=== PATIENT | female | born 1980 | race Two or more races ===

== ENCOUNTER 2016-12-20 08:00 | Inpatient (IN) | payer MEDICAID ==
[~2016-12-20] VITALS: Ht 162.6 cm; Wt 74.4 kg
--- NOTE | 2016-12-20 08:42 | NSTRPT ---
NST Information Datetime Report Generated by CPN: 12/20/2016 08:42 Datetime: 12/15/2016 10:16 NST Information EGA: 39.3 Test Number: 7 Time on Monitor: 12/15/2016 10:40 Time off Monitor: 12/15/2016 11:08 NST Duration (Min): 28 Reason for NST: Other Reason for NST Other: AMA Test and Monitor Explained: Monitor Explained; Test Explained; Verbalized Understanding Pulse: 88 Resp: 18 SBP: 100 DBP: 57 Test Evaluation NST Interventions: None Contraction Frequency: NONE FHR Baseline : 135 Variability: Moderate 6-25bpm Accelerations: 15X15 Decelerations: None FHR Category: Category I NST Results: Reactive Comments: To u/s. DORA 14.2cm. CEPHALIC. 1110-Pt home undelivered with labor precautions, kick count instructions reviewed and follo w up NST appt. given. States understanding and denies futher questions at this time. (Annotations: D lamberto stored by CPN on behalf of user) Electronically Signed By E-Signature: with User ID: [id number] Datetime: 12/12/2016 10:30 NST Information EGA: 39.0 NST Duration (Min): 23 Datetime: 12/08/2016 10:19 NST Information EGA: 38.3 NST Duration (Min): 40 Datetime: 12/05/2016 09:20 NST Information EGA: 38.0 NST Duration (Min): 30 Datetime: 11/30/2016 09:43 NST Information EGA: 37.2 NST Duration (Min): 28 Datetime: 11/27/2016 09:18 NST Information EGA: 36.6 NST Duration (Min): 32 Datetime: 11/23/2016 09:39 NST Information EGA: 36.2 Datetime: 11/23/2016 09:38 NST Duration (Min): 52
[2016-12-20 08:52] VITALS: Ht 162.6 cm; Wt 74.4 kg
[2016-12-20 08:53] VITALS: BP 136/71; RESP 16
[2016-12-20] MEDS ORDERED: IBUPROFEN 600 MG TAB PO PRN (09:00)
[2016-12-20] MEDS ORDERED: OXYTOCIN 30 UNITS/LR 500 ML IV SCH (09:00)
[2016-12-20] MEDS ORDERED: MISOPROSTOL 200 MCG TAB PR PRN (09:00)
[2016-12-20] MEDS ORDERED: CARBOPROST 250 MCG INJ IM PRN (09:00)
[2016-12-20] MEDS ORDERED: BUTORPHANOL 2 MG INJ IV PRN (09:00)
[2016-12-20] MEDS ORDERED: LIDOCAINE 1% (MPF) 30 ML INJ INJ PRN (09:00)
[2016-12-20] MEDS ORDERED: OXYTOCIN 30 UNITS/LR 500 ML IV PRN (09:00)
[2016-12-20] MEDS ORDERED: METHYLERGONOVINE 0.2 MG INJ IM PRN (09:00)
[2016-12-20] MEDS ORDERED: ACETAMINOPHEN/CODEINE #3 TAB PO PRN (09:00)
[2016-12-20] MEDS ORDERED: FOL8 PO (09:02)
[2016-12-20] MEDS ORDERED: PRENAT PO (09:02)
[2016-12-20] MEDS ORDERED: CALC600T11 PO (09:02)
--- NOTE | 2016-12-20 11:04 | RADRPT ---
PROCEDURE: US OB. CLINICAL INDICATION: Size and dates TECHNIQUE: Multiple sonographic images of the pelvis were obtained. Transabdominal imaging only w as performed. The images were reviewed on a PACS workstation. COMPARISON: No prior studies are available for comparison. FINDINGS: Single intrauterine gestation. Cephalic presentation. heart rate is 131 bpm. Measurements were made in order to determine age. The results are as follows: BPD = 9.74 cm HC = 33.65 cm AC = 35.40 cm FL = 7.35 cm Gestational age is 38 weeks 6 days and MARNI is 12/28/2016 by ultrasound criteria. Gestational age is 40 weeks 1 day and MARNI is 12/19/2016 by LMP. EFW = 3683 g +/- 546 g (50%). The placenta is posterior. There is no evidence for an abruption or placenta previa. DORA measures 12.0 cm, within normal limits. IMPRESSION: 1. Single live intrauterine gestation of approximately 38 weeks 6 days by ultrasound criteria. RPTAT: EE .Mario Bradley MD, Date Time Electronically viewed and signed by .Mario Bradley MD, on 12/20/2016 11:04 .R/
[2016-12-20] MEDS: LACTATED RINGER'S 1,000 ML IV SCH ×2 (11:22→20:40)
[2016-12-20] MEDS ORDERED: AMPICILLIN 2 GM/NS (PMX) 100 ML IV ONE (11:30)
[2016-12-20] MEDS: MISOPROSTOL 25 MCG CAPSULE PO SCH ×3 (11:37→19:44)
[2016-12-20 11:50] LABS: ADD SCAN DIFF NO
[2016-12-20 11:54] LABS: BASOPHILS % 0.3 % (0.0-2.0); EOSINOPHILS # 0.1 10^3/ul (0.0-0.5); EOSINOPHILS % 0.5 % (0.0-7.0); HEMATOCRIT 37.5 % (37.0-47.0); HEMOGLOBIN 12.8 g/dl (12.0-16.0); LYMPHOCYTES # 1.2 10^3/ul (0.8-2.9); LYMPHOCYTES % 12.6 % (15.0-51.0); MEAN CORPUSCULAR HEMOGLOBIN 31.9 pg (29.0-33.0); MEAN CORPUSCULAR HGB CONC 34.1 g/dl (32.0-37.0); MEAN CORPUSCULAR VOLUME 93.5 fl (82.0-101.0); MEAN PLATELET VOLUME 10.9 fl (7.4-10.4); MONOCYTE # 0.8 10^3/ul (0.3-0.9); MONOCYTES % 8.3 % (0.0-11.0); NEUTROPHIL # 7.2 10^3/ul (1.6-7.5); NEUTROPHILS % 76.7 % (39.0-77.0); PLATELET COUNT 147 10^3/UL (140-415); RED BLOOD COUNT 4.01 10^6/ul (4.20-5.40); RED CELL DISTRIBUTION WIDTH 14.1 % (11.5-14.5); WHITE BLOOD COUNT 9.4 10^3/ul (4.8-10.8)
[2016-12-20] MEDS ORDERED: LACTATED RINGER'S 1,000 ML IV PRN (12:00)
[2016-12-20 12:17] LABS: INR 0.93; PROTIME 12.5 Sec (12.2-14.2)
[2016-12-20 12:18] LABS: PARTIAL THROMBOPLASTIN TIME 28.5 Sec (25.0-35.0)
[2016-12-20] MEDS: AMPICILLIN 1 GM/NS (PMX) 50 ML IV SCH ×3 (15:40→23:39)
[2016-12-21] MEDS: AMPICILLIN 1 GM/NS (PMX) 50 ML IV SCH ×5 (03:36→20:28)
[2016-12-21] MEDS: LACTATED RINGER'S 1,000 ML IV SCH ×2 (06:03→22:01)
[2016-12-21] MEDS ORDERED: OXYTOCIN 30 UNITS/LR 500 ML IV SCH (11:00)
--- NOTE | 2016-12-21 13:43 | QN ---
Documentation Comment patient seen and evaluated no complaints vs stable ab gravid nt extremity no edema no calf tenderness ve 2/70/-2 arom positive meconium fhr cat [address] a/ iup at 40 wks ga, currently on pitocin for post edc p/ iupc expectant vaginal delivery DOUG FRAIRE MD Dec 21, 2016 13:43
[2016-12-21] MEDS ORDERED: DEXTROSE 5%-LR 1,000 ML IV SCH (14:00)
[2016-12-21] MEDS ORDERED: FENTAnyl 2MCG/ML-ROPIV 0.2% 100 ML ONE (17:13)
[2016-12-21] MEDS ORDERED: NALOXONE (0.4 MG/ML) INJ IV PRN (18:00)
[2016-12-21] MEDS: FENTAnyl 2MCG/ML-ROPIV 0.2% 100 ML BAG EPI SCH ×2 (18:39→23:33)
[2016-12-21] MEDS ORDERED: ONDANSETRON 4 MG INJ ONE (21:59)
[2016-12-21] MEDS: ONDANSETRON 4 MG INJ IV PRN (22:02)
[2016-12-22] MEDS: AMPICILLIN 1 GM/NS (PMX) 50 ML IV SCH ×2 (00:33→03:30)
[2016-12-22] MEDS ORDERED: OXYTOCIN 30 UNITS/LR 500 ML IV PRN ×2 (04:00→06:30)
[2016-12-22] MEDS ORDERED: MISOPROSTOL 200 MCG TAB PR PRN ×2 (04:00→06:30)
[2016-12-22] MEDS ORDERED: CEFAZOLIN 2 GM/50 ML (PMX) 50 ML IV SCH (04:00)
[2016-12-22] MEDS ORDERED: OXYTOCIN 30 UNITS/LR 500 ML IV SCH (04:00)
[2016-12-22] MEDS ORDERED: METHYLERGONOVINE 0.2 MG INJ IM PRN ×2 (04:00→06:30)
[2016-12-22] MEDS ORDERED: CARBOPROST 250 MCG INJ IM PRN ×2 (04:00→06:30)
[2016-12-22] MEDS: LACTATED RINGER'S 1,000 ML IV SCH ×6 (04:47→22:50)
[2016-12-22] MEDS ORDERED: LIDOCAINE 2%/EPI 30 ML INJ ONE (05:07)
[2016-12-22] MEDS ORDERED: FENTAnyl 50 MCG/ML VIAL ONE (05:07)
--- NOTE | 2016-12-22 05:13 | QN ---
Documentation Comment Patient aware she is progress to 3-4 cm dilated; however considering she is on high dose pitocin and positive meconium patient declining to continue induction of labor and desire elective CD. I explained in detail the r/b/a. patient signed consent in chart and all question were answered. DOUG FRAIRE MD Dec 22, 2016 05:13
[2016-12-22] MEDS ORDERED: DEXAMETHASONE 4 MG/ML 1 ML INJ ONE (05:21)
[2016-12-22] MEDS ORDERED: PHENYLephrine (100 MCG/ML) 5ML SYG ONE (05:21)
[2016-12-22] MEDS ORDERED: morphine SULFATE/PF (10 MG/10 ML) INJ ONE (05:57)
--- NOTE | 2016-12-22 06:12 | OPR ---
Operative Report Planned Procedure Free Text/Dictation DATE OF OPERATION: 12/22/2016 PREOPERATIVE DIAGNOSIS: Intrauterine 40 wks ga, in labor, decline to continue induction, desires elective CD POSTOPERATIVE DIAGNOSIS: Same. OPERATION PERFORMED: Primary low transverse delivery SURGEON: Doug Fraire MD. WELDER SETTER RESISTANCE MACHINE: Dr. Porter ANESTHESIA: epidural COMPLICATIONS OF PROCEDURE: None. ESTIMATED BLOOD LOSS: 500 mL. FINDINGS: A viable male, 9and 9 respectively at 1 and 5 minutes. Weight 8lb 11 oz Pathology: placenta DESCRIPTION OF PROCEDURE: After explaining the risks, benefits and alternatives , the patient and consent signed in chart, the patient was taken to the operating room where spinal anesthesia was found to be adequate. She was then prepared and draped in normal sterile fashion in dorsal supine position with a leftward tilt. A Pfannenstiel skin incision was then made with a scalpel and carried to the underlying layer of fascia. The fascia was incised in the midline and incision was extended laterally with Gerardo scissors. The superior aspect of the fascial incision was grasped with curved clamps, elevated and the underlying rectus muscles dissected off bluntly. Attention was then turned to the inferior aspect of the incision, which in similar fashion was grasped, tented up with curved clamps and the rectus muscles dissected off bluntly. The rectus muscles were then in midline, peritoneum identified, tented up with Metzenbaum scissors. The peritoneal incision was extended superiorly, inferiorly with good visualization of bladder. . At this point, the bladder blade was then inserted and the vesicouterine peritoneum identified, grasped with pickups and entered sharply with Metzenbaum scissors. This incision was extended laterally and the bladder flap created digitally. The bladder blade was then reinserted and was incised in transverse fashion with a scalpel. The uterine incision was extended laterally. The bladder blade was removed and the infant's head delivered atraumatically. The nose and mouth were suctioned and cord clamped and cut. The was handed off to awaiting door repairman. The placenta was then removed. The uterus was exteriorized and cleared of all clots and debris. The uterine incision was repaired with 1-0 chromic in a running locked fashion. A second layer of same suture was used for imbrication obtaining excellent hemostasis. The uterus was returned to the abdomen. The gutters were cleared of all clots. Good hemostasis was assured from the tubal ligation site. The peritoneum was reapproximated with 2-0 plain gut in interrupted fashion. The fascia was reapproximated with 0 Vicryl in a running fashion. The subcutaneous tissue was reapproximated with 2-0 plain gut in a running fashion. The skin was closed with absorbable garth. The patient tolerated procedure well. Sponge, lap and needle counts correct x2. The patient was taken to recovery room in stable condition. Procedure date Dec 22, 2016 Procedure Description Under satisfactory [] anesthesia, the patient was prepped and draped and placed in a supine position, tilted to the left. Pfannenstiel incision was made, carried through the subcutaneous tissue. Bleeders brought under control with electrocautery. Fascia incised to the length of the incision. Rectus muscles from the fascia, divided midline. Peritoneum exposed, entered through a transverse incision. Exploration of abdomen revealed gravid uterus. Bladder flap was developed. Transverse incision was made in the lower segment of the uterus. Amniotic sac ruptured. [] amniotic fluid noted. [] Nasal oropharyngeal suction was performed. The baby was handed to the team for immediate attention. The placenta was delivered manually intact. Uterine cavity was cleaned with wet sponge and drainage established. Uterus closed in 2 layers using [] in continuous fashion. Peritoneal cavity irrigated with warm saline. Sponge, needle and instrument count reported to be correct. Abdominal peritoneum closed with [] continuously. Rectus muscle approximated with []. Fascia closed with [], and skin closed with garth. Estimated blood loss []mL. Urine bag contained []mL of urine Post-Procedure Findings: Live Baby [], Apgars [] and [], weight [], position [], [] presentation []cord. Physician Certification I, the undersigned physician, hereby certify that I have discussed the procedure described in this consent form with this patient (or the patient's legal veterans contact representative), including: * The risk and benefits of the procedure; * Any adverse reactions that may reasonably be expected to occur; * Any alternative efficacious methods of treatment which may be medically viable ; * The potential problems that may occur during recuperation; * Potential for blood transfusion and associated risks/benefits; and * Any research or economic interest I may have regarding this treatment. I further certify that the patient/legally responsible person was encouraged to ask question and that all questions were answered. DOUG FRAIRE MD Dec 22, 2016 06:12
[2016-12-22] MEDS ORDERED: HYDROmorphONE 1 MG/ML SYG IV PRN ×2 (06:30)
[2016-12-22] MEDS ORDERED: NALOXONE (0.4 MG/ML) INJ IV PRN (06:30)
[2016-12-22] MEDS ORDERED: PROCHLORPERAZINE 10 MG INJ IV PRN (06:30)
[2016-12-22] MEDS ORDERED: DIPHENHYDRAMINE 50 MG INJ IV PRN (06:30)
[2016-12-22] MEDS ORDERED: ONDANSETRON 4 MG INJ IV PRN (06:30)
[2016-12-22] MEDS ORDERED: ZOLPIDEM 5 MG TAB PO PRN (06:30)
[2016-12-22] MEDS: OXYTOCIN 30 UNITS/LR 500 ML IV SCH ×2 (07:15→12:03)
[2016-12-22] MEDS: KETOROLAC 30 MG INJ IV PRN (08:00)
[2016-12-22] MEDS: SENNA/DOCUSATE NA (8.6MG/50MG) TAB PO SCH ×2 (09:00→21:50)
[2016-12-22 09:15] VITALS: BP 117/67; PULSE 83; RESP 18
[2016-12-22 09:45] VITALS: BP 123/76; RESP 18
[2016-12-22] MEDS: ONDANSETRON 4 MG INJ IV PRN (10:21)
[2016-12-22 12:00] VITALS: BP 122/69; PULSE 70; RESP 18
[2016-12-22 16:00] VITALS: BP 115/70; PULSE 80; RESP 18
[2016-12-22 20:30] VITALS: BP 106/58; PULSE 86; RESP 18
[2016-12-22 23:45] VITALS: BP 112/62; PULSE 82; RESP 18
[2016-12-23] MEDS: LACTATED RINGER'S 1,000 ML IV SCH ×6 (00:59→22:12)
[2016-12-23 04:00] VITALS: BP 99/53; PULSE 88; RESP 17
[2016-12-23] MEDS: KETOROLAC 30 MG INJ IV PRN (05:06)
[2016-12-23] MEDS ORDERED: OXYCODONE/ACETAMINOPHEN (5/325) TAB PO PRN ×2 (06:30)
[2016-12-23 07:41] LABS: ADD SCAN DIFF NO
[2016-12-23 07:46] VITALS: BP 118/60; PULSE 85; RESP 18
[2016-12-23 07:46] LABS: BASOPHILS % 0.2 % (0.0-2.0); EOSINOPHILS % 0.2 % (0.0-7.0); HEMATOCRIT 28.4 % (37.0-47.0); HEMOGLOBIN 9.5 g/dl (12.0-16.0); LYMPHOCYTES # 1.2 10^3/ul (0.8-2.9); LYMPHOCYTES % 9.7 % (15.0-51.0); MEAN CORPUSCULAR HEMOGLOBIN 31.6 pg (29.0-33.0); MEAN CORPUSCULAR HGB CONC 33.5 g/dl (32.0-37.0); MEAN CORPUSCULAR VOLUME 94.4 fl (82.0-101.0); MEAN PLATELET VOLUME 11.1 fl (7.4-10.4); MONOCYTE # 0.6 10^3/ul (0.3-0.9); MONOCYTES % 5.4 % (0.0-11.0); NEUTROPHILS % 83.6 % (39.0-77.0); PLATELET COUNT 130 10^3/UL (140-415); RED BLOOD COUNT 3.01 10^6/ul (4.20-5.40); RED CELL DISTRIBUTION WIDTH 14.5 % (11.5-14.5); WHITE BLOOD COUNT 11.9 10^3/ul (4.8-10.8)
[2016-12-23] MEDS: SENNA/DOCUSATE NA (8.6MG/50MG) TAB PO SCH ×2 (08:17→20:56)
--- NOTE | 2016-12-23 10:30 | QN ---
Documentation Comment POD#1 is stable afebrile tolerates diet No VB +Flatus Adequate urine VS stable Gen NAD Abd soft NT ND Dressing to be removed Genitalia No blood at perinium --->ambulation --->Discharge plan tomorrow GUNJAN AMBRIZ M.D. Dec 23, 2016 10:30
[2016-12-23] MEDS: IBUPROFEN 600 MG TAB PO SCH ×2 (12:01→18:00)
[2016-12-23 17:00] VITALS: BP 112/63; PULSE 91; RESP 18
[2016-12-23 20:30] VITALS: BP 112/57; PULSE 84; RESP 16
[2016-12-24] MEDS: IBUPROFEN 600 MG TAB PO SCH ×5 (00:24→23:44)
[2016-12-24] MEDS: LACTATED RINGER'S 1,000 ML IV SCH (00:59)
[2016-12-24 04:00] VITALS: BP 118/67; PULSE 86; RESP 18
[2016-12-24 08:30] VITALS: BP 129/60; PULSE 87; RESP 20
[2016-12-24] MEDS: SENNA/DOCUSATE NA (8.6MG/50MG) TAB PO SCH ×2 (09:00→20:31)
[2016-12-24] MEDS: LANOLIN 7 GM TUBE TOP PRN (12:20)
--- NOTE | 2016-12-24 14:06 | QN ---
Documentation Comment POD #2 s/p primary c-s Pt feels well and doing better. T=98.1 BP 129.60 Incision C/D/ I Lochia minimal. Ext 1+ edema. P: Cont. care. Plan d/c tomorrow. ALIYA DESAI MD Dec 24, 2016 14:06
[2016-12-24 16:00] VITALS: BP 123/63; PULSE 73; RESP 18
[2016-12-24 20:00] VITALS: BP 122/59; PULSE 74; RESP 18
--- NOTE | 2016-12-25 01:28 | PD.PPDC ---
EMERGENCY PLANNING AND RESPONSE MANAGER Discharge Instruction Condition Patient Condition: Fair Diet Diet: Resume Regular Diet Activity/Restrictions Activity: Normal Activity May Shower Restrictions: No Driving No Sexual Activity Nothing in the Vagina No [place] No Tampons, douche Follow-up Follow-up with Physician: 2, Week/Weeks Return to clinic for DATA ANALYTICS CHIEF SCIENTIST Instructions: Fever greater than 101 Chills Worsening abdominal pain Excessive Vaginal Bleeding More than 2 pads per hour Unable to tolerate diet OB Instructions: Breast Tenderness Depression Blurried Vision Headache Surgical Instructions: Incisional Drainage Incisional Redness DOUG FRAIRE MD Dec 25, 2016 01:28
--- NOTE | 2016-12-25 01:31 | DS ---
Date/Time of Note Date/Time of Note DATE: 12/25/16 TIME: 01:29 Obstetrical Discharge Record Final Diagnosis Final Diagnosis: Term delivered Section Section: Primary Complications Augmentation: No Induction: Yes Rupture of Membranes: No Condition on Discharge Physical Assessment Voiding: Yes Bowel Movement: Yes Breast: Soft, non-tender, Filling Fundus: Firm Calf Tenderness: No Patient Condition: DOUG David MD Dec 25, 2016 01:31
[2016-12-25 03:45] VITALS: BP 117/57; PULSE 95; RESP 18
[2016-12-25] MEDS: IBUPROFEN 600 MG TAB PO SCH ×3 (05:42→17:12)
[2016-12-25 08:00] VITALS: BP 133/62; PULSE 83; RESP 18
[2016-12-25] MEDS: SENNA/DOCUSATE NA (8.6MG/50MG) TAB PO SCH (08:35)
[2016-12-25] MEDS: LANOLIN 7 GM TUBE TOP PRN (14:08)
== END 2016-12-25 17:15 | disposition home or self-care (01) | DRG 766 ==
LOC: L-D 08:40 → PP1 12-22 09:14
PROVIDERS: ADMIT Obstetrics & Gynecology; ATTEND Obstetrics & Gynecology
PROC: 10D00Z1 Extraction of Products of Conception, Low, Open Approach (ICD-10-PCS; principal; 2016-12-22 05:00)
DX: O48.0 Post-term pregnancy (principal); Z37.0 Single live birth; Z3A.40 40 weeks gestation of pregnancy
CPT/HCPCS: 62319; 76815; 85025; 85610; 85730; 86592; 86900; 86901; 87340; 94760; 99464; J0290; J0690; J0780; J1100; J1885; J2274; J2370; J2405; J2590; J3010; J7120; J7121